=== PATIENT | male | born 1975 | race Hispanic/Latino ===

== ENCOUNTER 2020-07-24 14:05 | Emergency (ER) | payer OTHER ==
[2020-07-24 14:33] LABS: BASOPHILS % (AUTO) 0.3 % (0.0-5.0); EOSINOPHILS % (AUTO) 1.7 % (0.0-8.0); HEMATOCRIT 43.4 % (42-54); LYMPHOCYTES % (AUTO) 32.8 % (21.0-51.0); MEAN CORPUSCULAR HGB CONC 33.6 g/dL (32.0-36.0); MEAN CORPUSCULAR VOLUME 89.3 fL (79-99); MONOCYTES % (AUTO) 6.5 % (3.0-13.0); NEUTROPHILS % (AUTO) 58.4 % (40.0-77.0); PLATELET COUNT (AUTO) 243 K/uL (130-400); RED BLOOD CELL COUNT(AUTO) 4.86 MIL/uL (4.50-6.20); RED CELL DISTRIBUTION WIDTH 13.3 % (11.0-15.5); WHITE BLOOD COUNT (AUTO) 6.3 K/uL (4.8-10.8)
[2020-07-24] MEDS ORDERED: DEXAMETHASONE SOD PHOSPHATE 10MG/ML 1ML VIAL ONE (14:41)
[2020-07-24] MEDS ORDERED: CEFTRIAXONE 1G VIAL ONE (14:41)
[2020-07-24 14:42] LABS: POTASSIUM 3.5 mmol/L (3.5-5.1)
[2020-07-24] MEDS ORDERED: AZITHROMYCIN 250 MG TABLET PO ONE (14:42)
[2020-07-24] MEDS ORDERED: 0.9%NACL 100ML 100 ML IV ONE (14:43)
[2020-07-24 14:47] LABS: ALBUMIN 3.3 g/dL (3.5-5.0); BILIRUBIN,TOTAL 0.2 mg/dL (0.2-1.0); INR 1.01 (0.85-1.15); PROTHROMBIN TIME 10.8 SEC (9.6-11.6); TOTAL PROTEIN, SERUM 7.8 g/dL (6.0-8.3)
[2020-07-24 14:49] LABS: PARTIAL THROMBOPLASTIN TIME 28.4 SEC (26.3-35.5)
[2020-07-24] MEDS ORDERED: GUAIFENESIN-CODEINE 5 ML SYRUP ONE (14:50)
== END 2020-07-24 17:30 | disposition left against medical advice (07) ==
LOC: EDH 14:05
DX: U07.1 COVID-19 (principal)
CPT/HCPCS: 36415; 71045; 80053; 82550; 83880; 84484; 85025; 85378; 85610; 85730; 86140; 93005; 96365; 96375; 99285; J0696; J1100